=== PATIENT | male | born 1960 ===

== ENCOUNTER 2022-10-30 12:35 | Inpatient (IN) | payer OTHER ==
[~2022-10-30] VITALS: Ht 165.1 cm; Wt 80.7 kg
[2022-10-31] MEDS ORDERED: OLMSRTN-AMLDPN1 EACH PO (11:25)
[2022-11-05] MEDS ORDERED: OLMESARTAN MEDO20 MG (11:50)
== END 2022-11-08 09:46 | disposition home or self-care (01) | DRG 330 ==
LOC: ADM 10-31 10:15 → EDSTATUS 10-31 10:15 → O/R 11-05 06:31 → SURG 11-05 10:15 → SURH 11-06 08:38
PROVIDERS: ADMIT Surgery; ATTEND Surgery
PROC: 0DTG4ZZ Resection of Left Large Intestine, Percutaneous Endoscopic Approach (ICD-10-PCS; principal; 2022-11-05 13:00)
DX: D12.4 Benign neoplasm of descending colon (principal); J98.11 Atelectasis; I10 Essential (primary) hypertension